=== PATIENT | female | born 1990 | race Asian ===

== ENCOUNTER → 2019-08-25 | Outpatient (CLI) | payer BC ==
--- NOTE | 2019-08-25 11:20 | Diagnostic Imaging Report ---
INDICATION: survey. TECHNIQUE: Multiple real-time grayscale images were obtained over the gravid uterus. COMPARISON: None. FINDINGS: There is a single living intrauterine in a cephalic presentation. The biometry correlates with a gestational age of 20 weeks 3 days. Amniotic fluid index is 14.96. Placenta is anterior. There is no previa. The anatomical survey is unremarkable. This includes a four-chambered heart and three-vessel cord. Heart rate is 158 BPM. The maternal adnexa is unremarkable. Biometrical measurements are as follows: Biparietal 4.86 cm, age 20 weeks 5 days. Head circumference 17.75 cm, age 20 weeks 2 days. Abdominal circumference 15.23 cm, age 20 weeks 4 days. Femur length 3.18 cm, age 20 weeks 0 days. Sonographic estimate age: 20 weeks 3 days. Sonographic estimated date of delivery: 01/09/2020. Estimated Weight: 339 gm (+/- 50 gm). LMP percentile: 33%. heart rate: 158 beats per minute. number: 1 of 1. IMPRESSION: Single living intrauterine in a cephalic presentation with sonographically estimated gestational age of 20 weeks 3 days and estimated date of confinement of January 09, 2020. Dictated by: Dictated on workstation # [id number]
== END ==
LOC: RAD 09:52
PROVIDERS: ATTEND Nurse Practitioner Women's Health
DX: Z36.9 Encounter for antenatal screening, unspecified (principal); Z3A.20 20 weeks gestation of pregnancy
CPT/HCPCS: 76805

== ENCOUNTER 2019-12-23 10:10 | Inpatient (IN) | payer BC ==
[~2019-12-23] VITALS: Ht 157.5 cm; Wt 68.7 kg
[2019-12-23] VITALS (55 sets, daily range): BP systolic 90–130; BP diastolic 45–99
--- NOTE | 2019-12-23 10:09 | NUR ---
NADIABERNICE presented to unit via ambulation, accompanied by , for direct admit by Dr. Pt. weighed, gowned, voided, and to bed. EFHM and TOCO applied, VS taken. Pt. oriented to bed controls, call light, TV, heat, and A/C controls.
[2019-12-23] MEDS ORDERED: D5 LR IV SOLUTION 1,000 ML IV ONE (10:22)
[2019-12-23] MEDS: D5 LR IV SOLUTION 1,000 ML IV SCH ×2 (10:35→18:49)
--- NOTE | 2019-12-23 10:35 | NUR ---
#20g IV to Rt.hand x1 attempt per Bryanna.ANN MARIE Vyas. site patent, secured with opsite. admission labs collected prior to IVF's infusing.
[2019-12-23 10:47] LABS: BASOPHILS % (AUTO) 0 % (0-10); EOSINOPHILS # (AUTO) 0.1 10^3/uL (0.0-0.3); EOSINOPHILS % (AUTO) 1 % (0-10); HEMATOCRIT 37 % (35-52); HEMOGLOBIN 12.6 G/DL (11.5-16.0); LYMPHOCYTES # (AUTO) 1.9 X 10^3 (1.0-4.0); LYMPHOCYTES % (AUTO) 20 % (12-44); MEAN CORPUSCULAR HEMOGLOBIN 30 PG (25-34); MEAN CORPUSCULAR HGB CONC 34 G/DL (32-36); MEAN CORPUSCULAR VOLUME 88 FL (80-99); MEAN PLATELET VOLUME 10.9 FL (7.4-10.4); MONOCYTES % (AUTO) 10 % (0-12); NEUTROPHILS # (AUTO) 6.4 X 10^3 (1.8-7.8); NEUTROPHILS % (AUTO) 69 % (42-75); PLATELET COUNT 211 10^3/uL (130-400); WHITE BLOOD COUNT 9.3 10^3/uL (4.3-11.0)
--- OUTSIDE RECORDS SUMMARY | 2019-12-23 11:26 | XMS REPORT | Continuity of Care Document ---
Author Organization Unknown Address Unknown Phone Unavailable Allergies There is no data. Medications There is no data. Problems Date Dx Coded Attending Type Code Diagnosis Diagnosed By 06/17/2016 A V70.5 HEAL TH EXAMINATION OF DEFINED SUBPOPULATIONS 06/17/2016 A Z02.1 ENCO UNTER FOR PRE- EMPLOYMENT EXAMINATION 08/26/2019 HARVEY CABRERA [employer]ROAD [employer]DER Ot Z36.9 ENCOUNTER FOR SCREENING, UNSPE 08/26/2019 HARVEY CABRERA RAILROAD [employer]DER Ot Z3A.20 20 WEEKS GESTATION OF 09/09/2019 HARVEY CABRERA RAILROAD [employer]DER Ot Z36.9 ENCOUNTER FOR SCREENING, UNSPE 09/09/2019 HARVEY CABRERA RAILROAD [employer]DER Ot Z3A.20 20 WEEKS GESTATION OF Procedures There is no data. Results Test Result Range TB Spot - 06/17/16 11:30 TB Spot Submitted to [facility] for testing. Varicella-Zoster V Ab, IgG - 06/17/16 11 :30 VARICELLA ZOSTER IGG 1483 INDEX IMMUNE > 165 Complete blood count (CBC) with automate d white blood cell (WBC) differential - 12/23/19 10:35 Blood leukocytes automated count (number/volume) 9.3 10*3/uL 4.3-11.0 Blood erythrocytes automated count (number/volume) 4.17 10*6/uL 4.35-5.85 Venous blood hemoglobin measurement (mass/volume) 12.6 g/dL 11.5-16.0 Blood hematocrit (volume fraction) 37 % 35-52 Automated erythrocyte mean corpuscular volume 88 [ foz_us] 80-99 Automated erythrocyte mean corpuscular h emoglobin (mass per erythrocyte) 30 pg 25-34 Automated erythrocyte mean corpuscular h emoglobin concentration measurement (mass/volume) 34 g/dL 32-36 Automated erythrocyte distribution width ratio 13. 0 % 10.0- 14.5 Automated blood platelet count (count/volume) 211 10*3/uL 130-400 Automated blood platelet mean volume measurement 10.9 [foz_us] 7.4-10.4 Automated blood neutrophils/100 leukocytes 69 % 42-75 Automated blood lymphocytes/100 leukocytes 20 % 12-44 Blood monocytes/100 leukocytes 10 % 0-12 Automated blood eosinophils/100 leukocytes 1 % 0-10 Automated blood basophils/100 leukocytes 0 % 0-10 Blood neutrophils automated count (number/volume) 6.4 10*3 1.8-7.8 Blood lymphocytes automated count (number/volume) 1.9 10*3 1.0-4.0 Blood monocytes automated count (number/volume) 1. 0 10*3 0.0-1.0 Automated eosinophil count 0.1 10*3/uL 0 .0-0.3 Automated blood basophil count (count/volume) 0.0 10*3/uL 0.0-0.1 Blood type T Indirect antibody screen [facility] - 12/23/19 10:35 WRISTBAND NUMBER [id number] NRG ABO+Rh group OP NRG Blood group antibody screen NEGATIVE NR G Encounters ACCT No. Visit Date/Time Discharge Status Pt. Type Provider Facility Loc./Unit Complaint [id number] 04/19/2019 14:01:00 04/19/2019 23:59: 00 [facility] [id number] 04/29/2018 15:34:00 04/29/2018 23:59: 00 [facility] [id number] 04/28/2017 10:59:00 04/28/2017 23:59: 00 [facility] [id number] 06/17/2016 11:25:00 Document Registration [id number] 08/25/2019 09:52:00 020 23:59:59 CLS Outpatient HARVEY CABRERA APRN [facility] RAD [id number] 12/23/2019 10:47:00 Document Registration
--- NOTE | 2019-12-23 11:56 | NUR ---
report given to ANN MARIE Veliz.
[2019-12-23] MEDS ORDERED: OXYTOCIN PRE-MIX DRIP 500 ML IV SCH (11:57)
[2019-12-23] MEDS ORDERED: OXYTOCIN PRE-MIX DRIP 500 ML IV ONE (11:59)
--- NOTE | 2019-12-23 13:12 | History & Physical ---
History and Physical Date Seen by Provider: Dec 23, 2019 Time Seen by Provider: 12:00 This patient is a 29-year-old female seen in my clinic on this date at 37+ weeks gestation. She is sage every 2-4 minutes. Her cervix was dilated 1 cm and she was which represents a change from her previous exam. She was sent to labor and delivery secondary to the labor ears she denies rupture membranes or bleeding. Her GBS culture was negative. He has had no problems with his . Allergies are none Medications are vitamins Medical social and surgical histories are per the antepartum record exam is normal Neck supple no lymphadenopathy no thyromegaly Abdomen gravid soft nontender nondistended Extremities show no clubbing cyanosis. There is no Homans sign. Pelvic exam on recheck exam here in the hospital showed a cervix almost 2 cm 80 percent effaced -0-1 station with intact membranes and vertex presentation Laboratory Tests 12/23/19 10:35 Assessment and plan 37 weeks gestation with spontaneous labor. Patient has been admitted for labor management and for delivery. We anticipate a vaginal delivery. 37 weeks in labor Allergies and Home Medications Allergies Coded Allergies: No Known Drug Allergies (Unverified , 12/23/19) Patient Home Medication List Home Medication List Reviewed: Yes LETA JAVED MD Dec 23, 2019 13:12
[2019-12-23] MEDS ORDERED: fentaNYL 2 mcg/ml BUPIVA 0.125 100 ML ONE (13:50)
[2019-12-23] MEDS ORDERED: fentaNYL INJECTION 100 MCG/2 ML AMP ONE (14:24)
[2019-12-23] MEDS ORDERED: BUPIVACAINE 0.25% 30 ML (SENSORCAINE) VIAL ONE (14:24)
--- NOTE | 2019-12-23 14:27 | NUR ---
Joaquin Yan CRNA here for epidural placement. Procedure explained, consent reviewed and signed by anesthesia. Questions answered to patient's satisfaction. Time out taken to verify correct patient/procedure. Patient up to side of bed, assisted into sitting position. Betadine prep done x3 and sterile drape applied. Local done, see anesthesia record. Test dose given, see anesthesia record for drug and dosage. Epidural catheter secured in place. Epidural placement complete. Assisted back into bed, monitors adjusted. Epidural dosed, see anesthesia record. Epidural of Fentanyl/Bupvicaine @12_cc/hr stated per pump. Patient tolerated procedure well.
[2019-12-23] MEDS ORDERED: LACTATED RINGERS 1,000 ML IV ONE ×2 (14:59)
[2019-12-23] MEDS ORDERED: EPIDURAL (fentaNYL 2 MCG/ML BUPIVA 0.125%)100 ML BAG EPI PRN (15:00)
[2019-12-23] MEDS ORDERED: ONDANSETRON 4 MG/2 ML (SDV) Z0FRAN IV PRN (15:00)
[2019-12-23] MEDS ORDERED: NALOXONE 0.4 MG/ML 1 ML (NARCAN) VIAL IV PRN (15:00)
[2019-12-23] MEDS: ACETAMINOPHEN 500 MG TAB (TYLENOL) PO PRN (15:09)
--- NOTE | 2019-12-23 19:45 | NUR ---
Dr. Hopkins called up to nurses station for patient update. Notified of patient SVE, pitocin administration rate, FHR variability, and contraction pattern. New orders to continue to increase Pitocin rate until rate of 40mL/hr is reached.
--- NOTE | 2019-12-23 21:22 | NUR ---
This RN called Dr boo to notify of latest SVE. to come to hospital for delivery.
[2019-12-23] MEDS ORDERED: LIDOCAINE/EPI 2% 1:200,00 (XYLOCAINE) 20 ML VIAL ONE (21:46)
--- NOTE | 2019-12-23 23:45 | NUR ---
2345-Spontaneous vaginal delivery of viable female per Dr Hopkins. 2349-spontaneous delivery of placenta, Pitocin increased to 60mL/hr 2354-Repair of 1st degree perineal lac and left labial lac per Dr Hopkins
[2019-12-24] VITALS (9 sets, daily range): BP systolic 95–115; BP diastolic 51–64
[2019-12-24] MEDS ORDERED: OXYTOCIN PRE-MIX DRIP 500 ML IV SCH (00:11)
[2019-12-24] MEDS ORDERED: TETANUS,DIPTH,PERTUSS P/F (BOOSTRIX) 0.5 ML VIAL IM ONE (00:15)
[2019-12-24] MEDS ORDERED: MEASLES,MUMPS,RUBELLA 1 EA INJ SC ONE (00:15)
[2019-12-24] MEDS ORDERED: ONDANSETRON 4 MG/2 ML (SDV) Z0FRAN IVP PRN (00:15)
[2019-12-24] MEDS ORDERED: oxyCODONE/APAP 5/325MG (PERCOCET 5) TABLET PO PRN (00:15)
[2019-12-24] MEDS: KETOROLAC 30 MG/ML VIAL IVP SCH ×4 (00:19→18:15)
--- NOTE | 2019-12-24 01:20 | OPERATIVE REPORT ---
DATE OF SERVICE: 12/23/2019 DELIVERY NOTE The patient delivered by term spontaneous vaginal delivery at 37 weeks' gestation, a viable female infant with Apgars of 9 and 9 at 1 and 5 minutes respectively, weight of 6 pounds and 3 ounces. time of 2345. Cord blood pH of 7.15. The was delivered over a first-degree perineal and left labial majora laceration under epidural analgesia and with some local infiltrated into the perineal body. The was delivered in the straight OA position. The infant was bulb suctioned on delivery of the head. The delivery was then completed and the infant bulb suctioned again. The umbilical cord when pulseless was doubly clamped, father cut the cord, the baby was passed to mom's abdomen. Cord bloods were obtained. The placenta delivered spontaneously Cervantes. It was normal with a 3-vessel cord. The cervix, vagina, rectum, and perineum were examined and found to be intact, except for the first-degree perineal and left labial laceration that was repaired with a single suture of 3-0 Vicryl in the usual manner. There were several additional labia minora and majora, superficial abrasions that were not full thickness and were hemostatic and did not require any repair. Estimated blood loss was around 400 mL for the delivery and the repair. Sponge and needle counts were correct on completion of delivery and the repair. The patient remained in the LDR for recovery. The baby remained with the mom. Job ID: [id number] DocumentID: [id number] Dictated Date: 12/24/2019 00:07:25 Law Examiner Date: 12/24/2019 01:19:34 Dictated By: LETA JAVED MD
--- NOTE | 2019-12-24 02:20 | NUR ---
Patient assisted to wheelchair and taken to PP room 311. S/o and accompanying.
--- NOTE | 2019-12-24 02:25 | NUR ---
Patient assisted into bed, oriented to call light and room. FFU/2, scant rubra with no clots. Instructed patient to call for assistance when she is ready to try and ambulate to bathroom. Patient verbalized understanding.
[2019-12-24] MEDS: BENZOCAINE/MENTHOL (DERMOPLAST) 60 ML CAN TP PRN (02:35)
--- NOTE | 2019-12-24 03:25 | NUR ---
Patient awake in bed, . No needs or concerns at this time. Call light remains within reach.
--- NOTE | 2019-12-24 07:40 | NUR ---
Dr Hopkins here to see pt.
--- NOTE | 2019-12-24 07:47 | Progress Note ---
Standard Progress Note Progress Notes/Assess & Plan Date Seen by a Provider: Dec 24, 2019 Time Seen by a Provider: 07:46 Progress/Assessment & Plan This patient is without complaint. She is ambulating, voiding, tolerating oral intake well has good pain control. Vital Signs Date Time Temp Pulse Resp B/P (MAP) Pulse Ox O2 Delivery O2 Flow Rate FiO2 12/24/19 06:14 37.2 96 18 109/59 (76) 97 Room Air 12/24/19 01:51 89 18 96/54 (68) Room Air 12/24/19 01:21 95 18 101/52 (68) Room Air 12/24/19 00:49 36.9 12/24/19 00:43 97 18 103/61 (75) Room Air 12/24/19 00:13 106 18 95/51 (66) Room Air 12/23/19 23:58 108 18 101/45 (63) Room Air 12/23/19 23:45 126 18 114/74 (87) Room Air 12/23/19 23:30 139 18 126/80 (95) Room Air 12/23/19 23:15 105 18 109/68 (82) Room Air 12/23/19 23:00 107 18 111/61 (78) Room Air 12/23/19 22:45 111 18 106/51 (69) Room Air 12/23/19 22:30 18 Room Air 12/23/19 22:15 125 18 118/58 (78) Room Air 12/23/19 22:00 125 18 118/58 (78) Room Air 12/23/19 21:45 36.6 134 18 129/99 (109) Room Air 12/23/19 21:30 111 18 119/61 (80) Room Air 12/23/19 21:15 87 18 106/61 (76) Room Air 12/23/19 21:00 78 18 99/57 (71) Room Air 12/23/19 20:45 80 18 99/54 (69) Room Air 12/23/19 20:30 90 18 101/57 (72) Room Air 12/23/19 20:15 80 18 93/50 (64) Room Air 12/23/19 20:00 78 18 90/54 (66) Room Air 12/23/19 19:45 75 18 91/53 (66) Room Air 12/23/19 19:30 77 18 100/54 (69) Room Air 12/23/19 19:15 36.6 81 18 110/53 (72) Room Air 12/23/19 18:50 37.1 86 18 101/52 (68) Room Air 12/23/19 18:30 94 18 100/59 (73) Room Air 12/23/19 18:15 80 18 101/54 (70) Room Air 12/23/19 18:00 82 18 103/59 (74) Room Air 12/23/19 17:45 80 18 104/58 (73) Room Air 12/23/19 17:30 88 18 105/58 (74) 98 Room Air 12/23/19 17:15 82 18 100/58 (72) 98 Room Air 12/23/19 17:02 36.9 103 18 99 Room Air 12/23/19 17:00 79 18 97/52 (67) 97 Room Air 12/23/19 16:45 77 18 107/57 (74) 98 Room Air 12/23/19 16:30 78 18 107/53 (71) 98 Room Air 12/23/19 16:15 80 18 111/56 (74) 99 Room Air 12/23/19 16:00 90 18 109/53 (71) 99 Room Air 12/23/19 15:42 91 18 112/57 (75) 99 Room Air 12/23/19 15:38 97 18 126/60 (82) 98 Room Air 12/23/19 15:33 88 18 114/77 (89) 99 Room Air 12/23/19 15:26 81 18 118/57 (77) 100 Room Air 12/23/19 15:21 85 18 113/64 (80) 99 Room Air 12/23/19 15:16 87 18 114/62 (79) 98 Room Air 12/23/19 15:11 83 18 113/55 (74) 99 Room Air 12/23/19 15:08 86 18 106/50 (68) 99 Room Air 12/23/19 15:05 79 18 110/56 (74) 98 Room Air 12/23/19 15:02 81 18 111/56 (74) 98 Room Air 12/23/19 14:59 86 18 109/56 (73) Room Air 12/23/19 14:56 90 18 107/55 (72) 96 Room Air 12/23/19 14:53 83 18 109/56 (73) 98 Room Air 12/23/19 14:50 85 18 104/52 (69) 98 Room Air 12/23/19 14:48 83 18 114/55 (74) 98 Room Air 12/23/19 14:45 36.8 85 18 108/56 (73) Room Air 12/23/19 14:42 87 18 120/58 (78) 98 Room Air 12/23/19 14:38 100 18 130/58 (82) Room Air 12/23/19 14:25 91 18 113/60 (77) Room Air 12/23/19 14:10 81 18 107/52 (70) Room Air 12/23/19 13:55 78 18 115/55 (75) Room Air 12/23/19 13:40 86 18 115/67 (83) Room Air 12/23/19 10:18 36.9 103 18 130/78 (95) Room Air I & O 12/24/19 07:00 Intake Total 700 ml Balance 700 ml Vital signs are stable. Patient is afebrile. Fundus is firm below the umbilicus nontender. Extremities show no clubbing or cyanosis. There is no Homans sign. Assessment and plan day number 1 status post term spontaneous vaginal delivery at 37+ weeks gestation. Patient is doing well will have routine convalescence care today and consider discharge home tomorrow Final Diagnosis 37 week spontaneous vaginal delivery LETA JAVED MD Dec 24, 2019 07:47
[2019-12-24] MEDS ORDERED: DCS100C PO (07:50)
[2019-12-24] MEDS ORDERED: OXYC1TAB87 PO (07:50)
[2019-12-24] MEDS ORDERED: IBUP-1780 PO (07:50)
--- NOTE | 2019-12-24 07:50 | Discharge Inst-Surgical ---
Discharge Inst-Surgical Depart Medication/Instructions New, Converted or Re-Newed RX: RX on Chart Consults/Follow Up Patient Instructions: As directed Orders & Referrals Follow Up Appt: Call to make follow up appt. for patient in 4 weeks. Activity Per routine post vaginal delivery instructions. Please call in RX to patient pharmacy. Diet as tolerated Patient may shower or tub bathe as desired. Activity Activity as Tolerated: No Diet Discharge Diet: No Restrictions LETA JAVED MD Dec 24, 2019 07:50
[2019-12-24] MEDS ORDERED: ONDANSETRON 4 MG (ZOFRAN) ORAL DISSOLVE TAB PO PRN (08:00)
--- NOTE | 2019-12-24 08:23 | Anesthesia-Regional Post-Op ---
Regional Patient Condition Mental Status: Alert, Oriented x3 Circulation: Same as Pre-Op Headache: Absent Sensation: Full Recovery Motor Block: Absent Post Op Complications Complications None Follow Up Care/Instructions Patient Instructions None needed. Anesthesia/Patient Condition Patient is doing well, no complaints, stable vital signs, no apparent adverse anesthesia problems. No complications reported per nursing. RADHA ROJO CRNA Dec 24, 2019 08:23
[2019-12-24] MEDS: DOCUSATE SODIUM 100 MG (COLACE) CAP PO SCH ×2 (09:28→20:22)
[2019-12-24] MEDS: IBUPROFEN 800 MG (MOTRIN) TAB PO SCH ×4 (12:00→23:50)
--- NOTE | 2019-12-24 12:00 | NUR ---
Pt up in room ambulating without difficulty.
[2019-12-25] VITALS: BP 108/57
[2019-12-25 05:55] VITALS: BP 123/60
[2019-12-25] MEDS: IBUPROFEN 800 MG (MOTRIN) TAB PO SCH ×2 (05:56→12:20)
--- NOTE | 2019-12-25 08:30 | NUR ---
Dr. Hopkins here to see patient. New orders received.
--- NOTE | 2019-12-25 08:50 | Progress Note ---
Standard Progress Note Progress Notes/Assess & Plan Date Seen by a Provider: Dec 25, 2019 Time Seen by a Provider: 08:49 Progress/Assessment & Plan This patient is without complaint. She is ambulating, voiding, tolerating oral intake well has good pain control. Vital Signs Date Time Temp Pulse Resp B/P (MAP) Pulse Ox O2 Delivery O2 Flow Rate FiO2 12/24/19 06:14 37.2 96 18 109/59 (76) 97 Room Air 12/24/19 01:51 89 18 96/54 (68) Room Air 12/24/19 01:21 95 18 101/52 (68) Room Air 12/24/19 00:49 36.9 12/24/19 00:43 97 18 103/61 (75) Room Air 12/24/19 00:13 106 18 95/51 (66) Room Air 12/23/19 23:58 108 18 101/45 (63) Room Air 12/23/19 23:45 126 18 114/74 (87) Room Air 12/23/19 23:30 139 18 126/80 (95) Room Air 12/23/19 23:15 105 18 109/68 (82) Room Air 12/23/19 23:00 107 18 111/61 (78) Room Air 12/23/19 22:45 111 18 106/51 (69) Room Air 12/23/19 22:30 18 Room Air 12/23/19 22:15 125 18 118/58 (78) Room Air 12/23/19 22:00 125 18 118/58 (78) Room Air 12/23/19 21:45 36.6 134 18 129/99 (109) Room Air 12/23/19 21:30 111 18 119/61 (80) Room Air 12/23/19 21:15 87 18 106/61 (76) Room Air 12/23/19 21:00 78 18 99/57 (71) Room Air 12/23/19 20:45 80 18 99/54 (69) Room Air 12/23/19 20:30 90 18 101/57 (72) Room Air 12/23/19 20:15 80 18 93/50 (64) Room Air 12/23/19 20:00 78 18 90/54 (66) Room Air 12/23/19 19:45 75 18 91/53 (66) Room Air 12/23/19 19:30 77 18 100/54 (69) Room Air 12/23/19 19:15 36.6 81 18 110/53 (72) Room Air 12/23/19 18:50 37.1 86 18 101/52 (68) Room Air 12/23/19 18:30 94 18 100/59 (73) Room Air 12/23/19 18:15 80 18 101/54 (70) Room Air 12/23/19 18:00 82 18 103/59 (74) Room Air 12/23/19 17:45 80 18 104/58 (73) Room Air 12/23/19 17:30 88 18 105/58 (74) 98 Room Air 12/23/19 17:15 82 18 100/58 (72) 98 Room Air 12/23/19 17:02 36.9 103 18 99 Room Air 12/23/19 17:00 79 18 97/52 (67) 97 Room Air 12/23/19 16:45 77 18 107/57 (74) 98 Room Air 12/23/19 16:30 78 18 107/53 (71) 98 Room Air 12/23/19 16:15 80 18 111/56 (74) 99 Room Air 12/23/19 16:00 90 18 109/53 (71) 99 Room Air 12/23/19 15:42 91 18 112/57 (75) 99 Room Air 12/23/19 15:38 97 18 126/60 (82) 98 Room Air 12/23/19 15:33 88 18 114/77 (89) 99 Room Air 12/23/19 15:26 81 18 118/57 (77) 100 Room Air 12/23/19 15:21 85 18 113/64 (80) 99 Room Air 12/23/19 15:16 87 18 114/62 (79) 98 Room Air 12/23/19 15:11 83 18 113/55 (74) 99 Room Air 12/23/19 15:08 86 18 106/50 (68) 99 Room Air 12/23/19 15:05 79 18 110/56 (74) 98 Room Air 12/23/19 15:02 81 18 111/56 (74) 98 Room Air 12/23/19 14:59 86 18 109/56 (73) Room Air 12/23/19 14:56 90 18 107/55 (72) 96 Room Air 12/23/19 14:53 83 18 109/56 (73) 98 Room Air 12/23/19 14:50 85 18 104/52 (69) 98 Room Air 12/23/19 14:48 83 18 114/55 (74) 98 Room Air 12/23/19 14:45 36.8 85 18 108/56 (73) Room Air 12/23/19 14:42 87 18 120/58 (78) 98 Room Air 12/23/19 14:38 100 18 130/58 (82) Room Air 12/23/19 14:25 91 18 113/60 (77) Room Air 12/23/19 14:10 81 18 107/52 (70) Room Air 12/23/19 13:55 78 18 115/55 (75) Room Air 12/23/19 13:40 86 18 115/67 (83) Room Air 12/23/19 10:18 36.9 103 18 130/78 (95) Room Air I & O 12/24/19 07:00 Intake Total 700 ml Balance 700 ml Vital signs are stable. Patient is afebrile. Fundus is firm below the umbilicus nontender. Extremities show no clubbing or cyanosis. There is no Homans sign. Assessment and plan day number 1 status post term spontaneous vaginal delivery at 37+ weeks gestation. Patient is doing well will have routine convalescence care today and consider discharge home tomorrow December 25, 2019 Patient is without complaint. She is ambulating, voiding, tolerating oral intake well has good pain control. Patient is requesting discharge home. Vital Signs Date Time Temp Pulse Resp B/P (MAP) Pulse Ox O2 Delivery O2 Flow Rate FiO2 12/25/19 05:55 36.6 86 16 123/60 (81) 99 Room Air 12/25/19 00:00 36.6 86 18 108/57 (74) Room Air 12/24/19 20:20 36.6 88 18 111/52 (71) 97 Room Air 12/24/19 17:30 36.5 90 17 115/53 (73) 98 Room Air 12/24/19 13:10 36.3 90 18 109/56 (73) 98 Room Air Vital signs are stable. Patient is afebrile. Fundus is firm below the umbilicus and nontender. Extremities show no clubbing or cyanosis. There is no Homans sign. Assessment and plan day number 2 status post term spontaneous vaginal delivery at 37 weeks gestation. Patient is doing well and will be discharged home with follow-up in clinic Final Diagnosis 37 week spontaneous vaginal delivery LETA JAVED MD Dec 25, 2019 08:50
[2019-12-25 09:14] VITALS: BP 113/57
[2019-12-25] MEDS: DOCUSATE SODIUM 100 MG (COLACE) CAP PO SCH (09:14)
[2019-12-25] MEDS: ACETAMINOPHEN 500 MG TAB (TYLENOL) PO PRN (09:14)
[2019-12-25] MEDS: BENZOCAINE/MENTHOL (DERMOPLAST) 60 ML CAN TP PRN (09:14)
--- NOTE | 2019-12-25 09:14 | NUR ---
AM shift assessment completed and vital signs obtained, see interventions. Scheduled Colace PO and PRN Tylenol PO given at this time. Patient denies any further needs or concerns at this time. Patient would like to shower at home following dismissal.
--- NOTE | 2019-12-25 12:33 | NUR ---
Discharge instructions and medications reviewed with patient both written and verbally. Patient verbalizes understanding and questions answered. Prescriptions called to [facility].
--- NOTE | 2019-12-25 14:17 | NUR ---
Patient discharged at this time and ambulated down to awaiting private vehicle accompanied by this RN. No signs or symptoms of distress noted.
== END 2019-12-25 14:17 | disposition home or self-care (01) | DRG 807 ==
LOC: LDRP 10:10
PROVIDERS: ADMIT Obstetrics & Gynecology; ATTEND Obstetrics & Gynecology
PROC: 10E0XZZ Delivery of Products of Conception, External Approach (ICD-10-PCS; principal; 2019-12-23)
PROC: 0HQ9XZZ Repair Perineum Skin, External Approach (ICD-10-PCS; 2019-12-23)
DX: O70.0 First degree perineal laceration during delivery (principal); Z37.0 Single live birth; Z3A.37 37 weeks gestation of pregnancy
CPT/HCPCS: 36415; 85025; 86850; 86900; 86901